=== PATIENT | male | born 1945 | race Caucasian/White ===

== ENCOUNTER 2017-03-15 22:55 | Observation (INO) | payer OTHER ==
[~2017-03-15] VITALS: Ht 177.8 cm; Wt 106.5 kg
[~2017-03-15 22:55] MED LIST: ACTOS45 MG PO; AMLODIPINE-BEN1 EAC2 PO; ASPIR-LOW81 MG PO; ASPIRIN325 MG PO; ATENOLOL50 M1 PO; ATORVASTATIN CA40 MG PO; AUGMENTIN875 MG PO; BAYER CHEWABLE81 MG PO; CLOPIDOGREL75 MG PO; ECOTRIN325 MG PO; GLIPIZIDE10 MG PO; GLUCOPHAGE500 MG PO; GLUCOTROL XL10 MG PO; LEVEMIR FL100 UNIT/1 SC; LOTREL 5/101 CAPSULE PO; LOTREL 5/201 CAPSULE PO; METFORMIN HCL500 MG PO; METOPROLOL TART25 MG PO; MYCELEX10 MG MM; NIASPAN,SLO-NI500 MG PO; NITROLINGUAL S4.9 GM MM; NITROLINGUAL4.9 GM MM; NOVOLOG PE100 UNITS/ SC; NYSTATIN100000 UNI S; OMEGA 3-6-9 CO1 EACH PO; PREVACID15 MG PO; PRILOSEC40 MG PO; SIMVASTATIN80 MG PO; SLO-NIACIN500 MG PO; TENORMIN50 MG PO; ZANTAC150 MG PO; ZOCOR80 MG PO
[2017-03-15 23:30] LABS: HEMATOCRIT 32.7 % (38.0-50.0); MCHC 34.3 G/DL (30.0-36.0); MCV 87.7 FL (86-99); MEAN PLAT.VOLUME 12.4 uM^3 (9.0-12.4); PLATELET COUNT 152 K/uL (156-360); RBC DIS.WIDTH-CV 12.6 % (11.8-14.6); RBC DIS.WIDTH-SD 40.7 % (39-53); RED BLOOD COUNT 3.73 M/uL (4.00-5.50); WHITE BLOOD COUNT 8.9 K/uL (4.1-10.2)
[2017-03-15 23:44] LABS: CHLORIDE 111 mEq/L (99-109); POTASSIUM 3.9 mEq/L (3.7-5.4); SODIUM 142 mEq/L (136-147)
[2017-03-15 23:46] LABS: GLUCOSE 226 mg/dL (70-99)
[2017-03-15 23:47] LABS: ANION GAP 8 MEQ/L (2-14)
[2017-03-15 23:48] LABS: INTER. NORMALIZED RATIO 1.1; PROTHROMBIN TIME 10.7 (9.2-11.2); PTT 28.3 (25-32)
[2017-03-15 23:50] LABS: GFR ESTIMATE (CALCULATED) 42 mL/min/
[2017-03-15 23:51] LABS: UREA NITROGEN (BUN) 23 mg/dL (9-23)
[2017-03-15 23:58] LABS: TOTAL BILIRUBIN 0.4 mg/dL (0.0-1.0); TROP-I INTERPRETATION NEGATIVE; TROPONIN-I 0.03 ng/mL (0.0-0.30)
[2017-03-15 23:59] LABS: ALKALINE PHOSPHATASE 81 IU/L (3-129)
[2017-03-16 00:01] LABS: DIRECT BILIRUBIN 0.1 mg/dL (0.0-0.3)
[2017-03-16 00:03] LABS: LIPASE 9 U/L (1.0-51.0)
[2017-03-16 04:44] VITALS: BP 180/76
[2017-03-16 06:04] LABS: TROP-I INTERPRETATION NEGATIVE; TROPONIN-I 0.07 ng/mL (0.0-0.30)
[2017-03-16 07:11] VITALS: BP 174/80
[2017-03-16 08:07] LABS: HEMATOCRIT 30.3 % (38.0-50.0); MCHC 34.7 G/DL (30.0-36.0); MCV 89.4 FL (86-99); MEAN PLAT.VOLUME 12.9 uM^3 (9.0-12.4); PLATELET COUNT 134 K/uL (156-360); RED BLOOD COUNT 3.39 M/uL (4.00-5.50); WHITE BLOOD COUNT 7.3 K/uL (4.1-10.2)
[2017-03-16 08:09] LABS: POINT-OF-CARE METER ID UU14162513
[2017-03-16 08:22] LABS: ANION GAP 10 MEQ/L (2-14); CHLORIDE 111 MEQ/L (99-109); GFR ESTIMATE (CALCULATED) 49 mL/min/; GLUCOSE 114 mg/dL (70-99); POTASSIUM 3.9 MEQ/L (3.7-5.4); SAMPLE HEMOLYSIS CHECK 0; SAMPLE ICTERIC CHECK 0; SAMPLE LIPEMIA CHECK 0; SODIUM 142 MEQ/L (136-147); UREA NITROGEN (BUN) 23 mg/dL (9-23)
[2017-03-16] MEDS ORDERED: METFORMIN HCL500 MG PO (11:03)
[2017-03-16] MEDS ORDERED: AMLODIPINE-BEN1 EACH PO (11:03)
[2017-03-16] MEDS ORDERED: LOPRESSOR25 MG PO (11:03)
[2017-03-16] MEDS ORDERED: RANITIDINE HCL150 M1 PO (11:04)
[2017-03-16] MEDS ORDERED: OMEGA 3-6-9 11200 MG PO (11:04)
[2017-03-16] MEDS ORDERED: PLAVIX75 MG PO (11:05)
[2017-03-16] MEDS ORDERED: ASPIR-LOW81 MG PO (11:05)
[2017-03-16 11:22] LABS: D-DIMER ELISA 0.92 mg/L FEU (< 0.57)
[2017-03-16 11:35] LABS: TROP-I INTERPRETATION NEGATIVE; TROPONIN-I 0.06 ng/mL (0.0-0.30)
[2017-03-16 12:03] VITALS: BP 168/78
[2017-03-16 12:22] VITALS: BP 203/86
[2017-03-16 14:30] LABS: POINT-OF-CARE METER ID UU14162513
[2017-03-16 15:27] VITALS: BP 176/78
== END 2017-03-16 16:47 | disposition home or self-care (01) ==
LOC: EME 22:55 → EDOF 03-16 02:43 → 5WEST 03-16 04:29
PROVIDERS: Nurse Practitioner Family; Physician Assistant Medical; Student in an Organized Health Care Education/Training Program
DX: R07.9 Chest pain, unspecified (principal); I25.10 Atherosclerotic heart disease of native coronary artery without angina pectoris; Z95.1 Presence of aortocoronary bypass graft; Z95.5 Presence of coronary angioplasty implant and graft; I10 Essential (primary) hypertension; E11.42 Type 2 diabetes mellitus with diabetic polyneuropathy; E78.5 Hyperlipidemia, unspecified; K21.9 Gastro-esophageal reflux disease without esophagitis; R60.0 Localized edema; J90 Pleural effusion, not elsewhere classified; R94.31 Abnormal electrocardiogram [ECG] [EKG]; E66.9 Obesity, unspecified; Z68.33 Body mass index [BMI] 33.0-33.9, adult; Z79.4 Long term (current) use of insulin; I65.23 Occlusion and stenosis of bilateral carotid arteries; Z79.82 Long term (current) use of aspirin; I25.2 Old myocardial infarction; Z86.73 Personal history of transient ischemic attack (TIA), and cerebral infarction without residual deficits; R05 Cough; Z87.891 Personal history of nicotine dependence; N28.9 Disorder of kidney and ureter, unspecified
CPT/HCPCS: 71020; 71275; 80048; 80076; 82948; 83690; 84484; 85027; 85379; 85610; 85730; 93005; 93970; 99281; 99285; G0378; J7040

== ENCOUNTER 2017-08-06 12:23 | Observation (INO) | payer OTHER ==
[~2017-08-06] VITALS: Ht 180.3 cm; Wt 100.6 kg
[~2017-08-06 12:23] MED LIST changes: +AMLODIPINE-BEN1 EACH PO; +LOPRESSOR25 MG PO; +OMEGA 3-6-9 11200 MG PO; +PLAVIX75 MG PO; +RANITIDINE HCL150 M1 PO
[2017-08-06 13:42] LABS: EOSINOPHIL (%) 2.4 % (0-5); EOSINOPHIL COUNT 0.2 K/uL (0-0.3); HEMATOCRIT 33.3 % (38.0-50.0); IMMATURE GRANULOCYTE (%) 0.2 % (0.0-0.7); INSTRUMENT ABS NEUTROPHIL CT 6.7 K/uL; LYMPHOCYTE COUNT 1.2 K/uL (1.0-2.8); MCH 30.3 PG (29.0-34.0); MCHC 34.8 G/DL (30.0-36.0); MCV 86.9 FL (86-99); MEAN PLAT.VOLUME 12.3 uM^3 (9.0-12.4); MONOCYTE (%) 6.7 % (3-12); MONOCYTE COUNT 0.6 K/uL (0-0.8); NEUTROPHIL (%) 76.2 % (45-76); NEUTROPHIL COUNT 6.7 K/uL (1.8-6.4); PLATELET COUNT 134 K/uL (156-360); RBC DIS.WIDTH-CV 12.3 % (11.8-14.6); RBC DIS.WIDTH-SD 39.3 % (39-53); RED BLOOD COUNT 3.83 M/uL (4.00-5.50); WHITE BLOOD COUNT 8.8 K/uL (4.1-10.2)
[2017-08-06 13:50] LABS: CHLORIDE 108 mEq/L (99-109); POTASSIUM 3.5 mEq/L (3.7-5.4); SODIUM 140 mEq/L (136-147)
[2017-08-06 13:52] LABS: GLUCOSE 211 mg/dL (70-99)
[2017-08-06 13:53] LABS: ANION GAP 9 MEQ/L (2-14)
[2017-08-06 13:56] LABS: GFR ESTIMATE (CALCULATED) 28 mL/min/
[2017-08-06 13:57] LABS: UREA NITROGEN (BUN) 30 mg/dL (9-23)
[2017-08-06 14:02] LABS: TROP-I INTERPRETATION NEGATIVE; TROPONIN-I 0.04 ng/mL (0.0-0.30)
[2017-08-06 15:41] LABS: TROP-I INTERPRETATION NEGATIVE; TROPONIN-I 0.04 ng/mL (0.0-0.30)
[2017-08-06] MEDS ORDERED: HYDROCHLOROTHIA25 MG PO (17:57)
[2017-08-06] MEDS ORDERED: NOVOLIN N100 UNITS/ SC (17:58)
[2017-08-06] MEDS ORDERED: LIPITOR40 MG PO (17:58)
[2017-08-06 20:58] LABS: TROP-I INTERPRETATION NEGATIVE; TROPONIN-I 0.04 ng/mL (0.0-0.30)
[2017-08-06 21:03] VITALS: BP 207/91
[2017-08-06 21:57] LABS: POINT-OF-CARE METER ID UU13113831
[2017-08-07 03:19] LABS: EOSINOPHIL (%) 1.8 % (0-5); EOSINOPHIL COUNT 0.2 K/uL (0-0.3); HEMATOCRIT 31.5 % (38.0-50.0); IMMATURE GRANULOCYTE (%) 0.3 % (0.0-0.7); INSTRUMENT ABS NEUTROPHIL CT 6.2 K/uL; LYMPHOCYTE COUNT 1.7 K/uL (1.0-2.8); MCH 30.2 PG (29.0-34.0); MCHC 35.2 G/DL (30.0-36.0); MCV 85.6 FL (86-99); MEAN PLAT.VOLUME 12.3 uM^3 (9.0-12.4); MONOCYTE (%) 7.9 % (3-12); MONOCYTE COUNT 0.7 K/uL (0-0.8); NEUTROPHIL (%) 70.4 % (45-76); NEUTROPHIL COUNT 6.2 K/uL (1.8-6.4); PLATELET COUNT 148 K/uL (156-360); RBC DIS.WIDTH-CV 12.4 % (11.8-14.6); RBC DIS.WIDTH-SD 38.5 % (39-53); RED BLOOD COUNT 3.68 M/uL (4.00-5.50); WHITE BLOOD COUNT 8.8 K/uL (4.1-10.2)
[2017-08-07 03:34] LABS: CHLORIDE 108 mEq/L (99-109); POTASSIUM 3.8 mEq/L (3.7-5.4); SODIUM 137 mEq/L (136-147)
[2017-08-07 03:37] LABS: GLUCOSE 312 mg/dL (70-99)
[2017-08-07 03:38] LABS: ANION GAP 7 MEQ/L (2-14)
[2017-08-07 03:39] LABS: TOTAL BILIRUBIN 0.5 mg/dL (0.0-1.0)
[2017-08-07 03:40] LABS: ALKALINE PHOSPHATASE 72 IU/L (3-129)
[2017-08-07 03:41] LABS: GFR ESTIMATE (CALCULATED) 31 mL/min/
[2017-08-07 03:42] LABS: DIRECT BILIRUBIN 0.1 mg/dL (0.0-0.3); UREA NITROGEN (BUN) 31 mg/dL (9-23)
[2017-08-07 03:45] LABS: TROP-I INTERPRETATION NEGATIVE; TROPONIN-I 0.04 ng/mL (0.0-0.30)
[2017-08-07 03:56] VITALS: BP 199/84
[2017-08-07 04:32] LABS: POINT-OF-CARE METER ID UU14162513
[2017-08-07 06:54] LABS: Estimated Average Glucose 194 mg/dL (70-123); HEMOGLOBIN A1c (GLYCOHEMOGLOB) 8.4 % HGB (Below 5.7)
[2017-08-07 07:50] VITALS: BP 182/77
[2017-08-07 08:27] LABS: POINT-OF-CARE METER ID UU13113700
== END 2017-08-07 09:54 | disposition home or self-care (01) ==
LOC: EME 12:23 → EDOF 19:13 → ENRESERV 19:14 → 5WEST 20:50
PROVIDERS: Emergency Medicine; Internal Medicine
DX: R55 Syncope and collapse (principal); N17.9 Acute kidney failure, unspecified; I12.9 Hypertensive chronic kidney disease with stage 1 through stage 4 chronic kidney disease, or unspecified chronic kidney disease; E11.22 Type 2 diabetes mellitus with diabetic chronic kidney disease; N18.9 Chronic kidney disease, unspecified; E11.65 Type 2 diabetes mellitus with hyperglycemia; E11.40 Type 2 diabetes mellitus with diabetic neuropathy, unspecified; I25.10 Atherosclerotic heart disease of native coronary artery without angina pectoris; Z79.4 Long term (current) use of insulin; E78.5 Hyperlipidemia, unspecified; K21.9 Gastro-esophageal reflux disease without esophagitis; Z86.73 Personal history of transient ischemic attack (TIA), and cerebral infarction without residual deficits; Z95.1 Presence of aortocoronary bypass graft; Z79.02 Long term (current) use of antithrombotics/antiplatelets; Z79.82 Long term (current) use of aspirin; R60.0 Localized edema
CPT/HCPCS: 71010; 80048; 80076; 82948; 83036; 84484; 85025; 85379; 93005; 99281; 99285; G0378; J0461; J1644; J1815; J7030

== ENCOUNTER 2017-10-27 10:52 | Inpatient (IN) | payer OTHER ==
[~2017-10-27] VITALS: Ht 180.3 cm; Wt 97.4 kg
[2017-10-27] VITALS (8 sets, daily range): BP systolic 160–185; BP diastolic 63–74
[~2017-10-27 10:52] MED LIST changes: +HYDROCHLOROTHIA25 MG PO; +LIPITOR40 MG PO; +NOVOLIN N100 UNITS/ SC
[2017-10-27 11:17] LABS: BASOPHIL (%) 0.3 % (0-1); EOSINOPHIL (%) 1.7 % (0-5); EOSINOPHIL COUNT 0.2 K/uL (0-0.3); HEMOGLOBIN 12.3 G/DL (12.5-16.6); IMMATURE GRANULOCYTE (%) 0.3 % (0.0-0.7); LYMPHOCYTE (%) 24.9 % (15-42); LYMPHOCYTE COUNT 2.2 K/uL (1.0-2.8); MCH 30.8 PG (29.0-34.0); MCHC 34.2 G/DL (30.0-36.0); MCV 90.2 FL (86-99); MONOCYTE (%) 7.7 % (3-12); MONOCYTE COUNT 0.7 K/uL (0-0.8); NEUTROPHIL (%) 65.1 % (45-76); NEUTROPHIL COUNT 5.7 K/uL (1.8-6.4); PLATELET COUNT 178 K/uL (156-360); RBC DIS.WIDTH-CV 12.7 % (11.8-14.6); RBC DIS.WIDTH-SD 41.8 % (39-53); RED BLOOD COUNT 3.99 M/uL (4.00-5.50); WHITE BLOOD COUNT 8.8 K/uL (4.1-10.2)
[2017-10-27 11:22] LABS: ALBUMIN 3.2 g/dL (3.2-4.8); CHLORIDE 108 mEq/L (99-109); POTASSIUM 3.8 mEq/L (3.7-5.4); SODIUM 141 mEq/L (136-147)
[2017-10-27 11:23] LABS: MAGNESIUM 1.9 mg/dL (1.3-2.7)
[2017-10-27 11:25] LABS: GLUCOSE 244 mg/dL (70-99); TOTAL PROTEIN 6.3 g/dL (6.4-8.3)
[2017-10-27 11:27] LABS: TOTAL BILIRUBIN 0.7 mg/dL (0.0-1.0)
[2017-10-27 11:28] LABS: ALKALINE PHOSPHATASE 94 IU/L (3-129)
[2017-10-27 11:29] LABS: CREATININE 2.7 mg/dL (0.6-1.3); GFR ESTIMATE (CALCULATED) 25 mL/min/ (58.99-99999)
[2017-10-27 11:30] LABS: AST (GOT) 15 IU/L (2-34); UREA NITROGEN (BUN) 27 mg/dL (9-23)
[2017-10-27 11:31] LABS: ALT (GPT) 23 IU/L (3-49)
[2017-10-27 11:32] LABS: CREATINE KINASE 55 IU/L (1-294); TOTAL CK 55 IU/L (1-294)
[2017-10-27 11:38] LABS: CK-MB 1.9 ng/mL (0.0-4.9); CKMB RELATIVE INDEX 3.5 (0.0-3.9); TROP-I INTERPRETATION NEGATIVE; TROPONIN-I 0.07 ng/mL (0.0-0.30)
[2017-10-27] MEDS ORDERED: NOVOLIN N100 UNITS/ SC (13:26)
[2017-10-28] VITALS (18 sets, daily range): BP systolic 101–181; BP diastolic 57–86
[2017-10-28 06:06] LABS: CHLORIDE 106 MEQ/L (99-109); CREATININE 2.6 MG/DL (0.6-1.3); GFR ESTIMATE (CALCULATED) 26 mL/min/ (58.99-99999); POTASSIUM 3.3 MEQ/L (3.7-5.4); SODIUM 139 MEQ/L (136-147); UREA NITROGEN (BUN) 35 mg/dL (9-23)
[2017-10-28 06:08] LABS: GLUCOSE 67 mg/dL (70-99)
[2017-10-28 19:14] LABS: TROP-I INTERPRETATION POSITIVE; TROPONIN-I 1.11 ng/mL (0.0-0.30)
[2017-10-29 03:00] VITALS: BP 166/84
[2017-10-29 06:05] LABS: HEMATOCRIT 33.5 % (38.0-50.0); HEMOGLOBIN 11.5 G/DL (12.5-16.6); MCH 30.5 PG (29.0-34.0); MCHC 34.3 G/DL (30.0-36.0); MCV 88.9 FL (86-99); PLATELET COUNT 154 K/uL (156-360); RBC DIS.WIDTH-SD 42.3 % (39-53); RED BLOOD COUNT 3.77 M/uL (4.00-5.50); WHITE BLOOD COUNT 7.7 K/uL (4.1-10.2)
[2017-10-29 06:06] LABS: TROP-I INTERPRETATION POSITIVE; TROPONIN-I 1.01 ng/mL (0.0-0.30)
[2017-10-29 06:09] LABS: CHLORIDE 110 MEQ/L (99-109); CREATININE 2.6 MG/DL (0.6-1.3); GFR ESTIMATE (CALCULATED) 26 mL/min/ (58.99-99999); SODIUM 141 MEQ/L (136-147); UREA NITROGEN (BUN) 34 mg/dL (9-23)
[2017-10-29 06:10] LABS: GLUCOSE 144 mg/dL (70-99); POTASSIUM 4.2 MEQ/L (3.7-5.4)
[2017-10-29 08:02] VITALS: BP 174/77
[2017-10-29 12:00] VITALS: BP 150/85
[2017-10-29 16:00] VITALS: BP 194/90
[2017-10-29 20:07] VITALS: BP 169/77
[2017-10-30] VITALS: BP 185/85
[2017-10-30 05:16] VITALS: BP 178/84
[2017-10-30 07:20] LABS: CHLORIDE 107 MEQ/L (99-109); CREATININE 2.3 MG/DL (0.6-1.3); GFR ESTIMATE (CALCULATED) 30 mL/min/ (58.99-99999); POTASSIUM 4.2 MEQ/L (3.7-5.4); SODIUM 139 MEQ/L (136-147); UREA NITROGEN (BUN) 29 mg/dL (9-23)
[2017-10-30 07:23] LABS: GLUCOSE 227 mg/dL (70-99)
[2017-10-30 07:49] VITALS: BP 168/74
[2017-10-30] MEDS ORDERED: LOPRESSOR25 MG PO (11:15)
[2017-10-30] MEDS ORDERED: AMLODIPINE BESYL5 MG PO (11:17)
[2017-10-30] MEDS ORDERED: NOVOLIN N100 UNITS/ SC ×2 (11:17)
[2017-10-30] MEDS ORDERED: LASIX20 MG PO (11:18)
== END 2017-10-30 12:00 | disposition home or self-care (01) | DRG 307 ==
LOC: EME 10:52 → EDOF 12:34 → 4WEST 12:34 → ENRESERV 12:36 → 4WEST 17:31 → ENRESERV 10-28 10:17 → 5SOUTH 10-28 16:58
PROVIDERS: Emergency Medicine; Hospitalist; Internal Medicine Cardiovascular Disease; Internal Medicine Critical Care Medicine
DX: I08.0 Rheumatic disorders of both mitral and aortic valves (principal); R00.1 Bradycardia, unspecified; N17.9 Acute kidney failure, unspecified; E87.2 Acidosis; I24.8 Other forms of acute ischemic heart disease; T44.7X5A Adverse effect of beta-adrenoreceptor antagonists, initial encounter; I12.9 Hypertensive chronic kidney disease with stage 1 through stage 4 chronic kidney disease, or unspecified chronic kidney disease; E11.22 Type 2 diabetes mellitus with diabetic chronic kidney disease; N18.4 Chronic kidney disease, stage 4 (severe); E11.51 Type 2 diabetes mellitus with diabetic peripheral angiopathy without gangrene; E11.42 Type 2 diabetes mellitus with diabetic polyneuropathy; I65.23 Occlusion and stenosis of bilateral carotid arteries; S80.811A Abrasion, right lower leg, initial encounter; W22.8XXA Striking against or struck by other objects, initial encounter; Y92.008 Other place in unspecified non-institutional (private) residence as the place of occurrence of the external cause; I44.0 Atrioventricular block, first degree; I25.10 Atherosclerotic heart disease of native coronary artery without angina pectoris; E87.6 Hypokalemia; E78.00 Pure hypercholesterolemia, unspecified; K21.9 Gastro-esophageal reflux disease without esophagitis; I25.2 Old myocardial infarction; Z86.73 Personal history of transient ischemic attack (TIA), and cerebral infarction without residual deficits; Z95.1 Presence of aortocoronary bypass graft; Z95.5 Presence of coronary angioplasty implant and graft; Z79.4 Long term (current) use of insulin; Z79.02 Long term (current) use of antithrombotics/antiplatelets; Z79.82 Long term (current) use of aspirin; Z87.891 Personal history of nicotine dependence; Z82.49 Family history of ischemic heart disease and other diseases of the circulatory system
CPT/HCPCS: 70450; 71045; 80047; 80048; 80053; 82550; 82553; 82948; 83605; 83735; 84484; 85025; 85027; 87641; 93005; 93306; 93880; 99281; 99285; J0360; J0461; J1644; J1815; J2250; J7030; J7120

== ENCOUNTER 2017-11-30 00:43 | Inpatient (IN) | payer OTHER ==
[~2017-11-30] VITALS: Ht 180.3 cm; Wt 101.7 kg
[~2017-11-30 00:43] MED LIST changes: +AMLODIPINE BESYL5 MG PO; +LASIX20 MG PO
[2017-11-30 01:19] LABS: HEMATOCRIT 31.3 % (38.0-50.0); MCH 31.2 PG (29.0-34.0); MCHC 35.1 G/DL (30.0-36.0); MCV 88.7 FL (86-99); RBC DIS.WIDTH-CV 12.4 % (11.8-14.6); RBC DIS.WIDTH-SD 40.5 % (39-53); RED BLOOD COUNT 3.53 M/uL (4.00-5.50); WHITE BLOOD COUNT 6.4 K/uL (4.1-10.2)
[2017-11-30 01:28] LABS: CHLORIDE 108 mEq/L (99-109); POTASSIUM 3.9 mEq/L (3.7-5.4); SODIUM 139 mEq/L (136-147)
[2017-11-30 01:29] LABS: GLUCOSE 180 mg/dL (70-99)
[2017-11-30 01:33] LABS: CREATININE 2.6 mg/dL (0.6-1.3); GFR ESTIMATE (CALCULATED) 26 mL/min/ (58.99-99999)
[2017-11-30 01:34] LABS: UREA NITROGEN (BUN) 25 mg/dL (9-23)
[2017-11-30 01:40] LABS: TROP-I INTERPRETATION NEGATIVE
[2017-11-30 02:01] LABS: PLAT.SUFFICIENCY DECREASED; PLATELET COUNT 143 K/uL (156-360)
[2017-11-30 02:13] LABS: CARBON DIOXIDE (BICARBONATE) 22.1 MEQ/L (20-31)
[2017-11-30 03:15] LABS: ALBUMIN 3.5 g/dL (3.2-4.8)
[2017-11-30 03:18] LABS: TOTAL PROTEIN 6.8 g/dL (6.4-8.3)
[2017-11-30 03:20] LABS: TOTAL BILIRUBIN 0.5 mg/dL (0.0-1.0)
[2017-11-30 03:21] LABS: ALKALINE PHOSPHATASE 103 IU/L (3-129)
[2017-11-30 03:23] LABS: AST (GOT) 16 IU/L (2-34); DIRECT BILIRUBIN 0.2 mg/dL (0.0-0.3)
[2017-11-30 03:24] LABS: ALT (GPT) 19 IU/L (3-49)
[2017-11-30 03:33] LABS: APPEARANCE CLEAR ((CLEAR)); BILIRUBIN NEGATIVE; BLOOD SMALL; COLOR YELLOW ((YELLOW)); GLUCOSE (STRIP) >=500; KETONES NEGATIVE; LEUKOCYTES NEGATIVE; NITRITE NEGATIVE; PROTEIN (STRIP) >=500; SPECIFIC GRAVITY 1.012 (1.000-1.030); UROBILINOGEN 0.2 MG/DL (0.2-1.0)
[2017-11-30 03:41] LABS: BACTERIA RARE /HPF; EPITHELIAL CELLS NONE SEEN /HPF; MUCUS TRACE /LPF; UCUL ADDED? NO; WHITE BLOOD CELLS 0-5 /HPF (0-5)
[2017-11-30 04:40] LABS: INTER. NORMALIZED RATIO 1.1
[2017-11-30 04:43] LABS: PTT 32.2 SEC (25-37)
[2017-11-30 04:47] VITALS: BP 171/77
[2017-11-30 06:50] LABS: TROP-I INTERPRETATION NEGATIVE; TROPONIN-I 0.24 ng/mL (0.0-0.30)
[2017-11-30 06:56] VITALS: BP 141/67
[2017-11-30 07:21] LABS: HDL CHOLESTEROL 26 MG/DL (Desirable>=40); LDL CHOLESTEROL 89 mg/dL (Desirable<100); NON-HDL CHOLESTEROL 109 mg/dL (Desirable<160); TOTAL CHOLESTEROL 135 mg/dL (Desirable<200); TRIGLYCERIDES 102 MG/DL (Normal: <150)
[2017-11-30] MEDS ORDERED: LASIX20 MG PO (10:43)
[2017-11-30 11:02] VITALS: BP 153/68
[2017-11-30 12:33] LABS: TROP-I INTERPRETATION INDETERMINATE; TROPONIN-I 0.33 ng/mL (0.0-0.30)
[2017-11-30 14:57] VITALS: BP 158/69
[2017-11-30 19:28] VITALS: BP 124/61
[2017-12-01] VITALS (7 sets, daily range): BP systolic 125–185; BP diastolic 61–87
[2017-12-01 06:46] LABS: HEMATOCRIT 30.7 % (38.0-50.0); HEMOGLOBIN 10.5 G/DL (12.5-16.6); MCH 30.3 PG (29.0-34.0); MCHC 34.2 G/DL (30.0-36.0); MCV 88.7 FL (86-99); PLATELET COUNT 127 K/uL (156-360); RBC DIS.WIDTH-CV 12.6 % (11.8-14.6); RBC DIS.WIDTH-SD 41.1 % (39-53); RED BLOOD COUNT 3.46 M/uL (4.00-5.50); WHITE BLOOD COUNT 6.1 K/uL (4.1-10.2)
[2017-12-01 07:06] LABS: TROP-I INTERPRETATION NEGATIVE; TROPONIN-I 0.25 ng/mL (0.0-0.30)
[2017-12-01 10:15] LABS: CHLORIDE 105 MEQ/L (99-109); CREATININE 2.5 MG/DL (0.6-1.3); GFR ESTIMATE (CALCULATED) 27 mL/min/ (58.99-99999); SODIUM 135 MEQ/L (136-147); UREA NITROGEN (BUN) 26 mg/dL (9-23)
[2017-12-01 10:23] LABS: GLUCOSE 108 mg/dL (70-99)
[2017-12-01 10:31] LABS: INTER. NORMALIZED RATIO 1.2
[2017-12-01 12:30] LABS: UR CREATININE CONCENTRATION 104.3 MG/DL
[2017-12-02 03:13] VITALS: BP 170/73
[2017-12-02 06:22] LABS: BASOPHIL (%) 0.2 % (0-1); EOSINOPHIL (%) 0.2 % (0-5); HEMATOCRIT 29.7 % (38.0-50.0); HEMOGLOBIN 10.2 G/DL (12.5-16.6); IMMATURE GRANULOCYTE (%) 0.2 % (0.0-0.7); LYMPHOCYTE (%) 14.8 % (15-42); LYMPHOCYTE COUNT 0.6 K/uL (1.0-2.8); MCH 30.2 PG (29.0-34.0); MCHC 34.3 G/DL (30.0-36.0); MCV 87.9 FL (86-99); MONOCYTE (%) 13.4 % (3-12); MONOCYTE COUNT 0.6 K/uL (0-0.8); NEUTROPHIL (%) 71.2 % (45-76); NEUTROPHIL COUNT 3.1 K/uL (1.8-6.4); PLATELET COUNT 117 K/uL (156-360); RBC DIS.WIDTH-CV 12.5 % (11.8-14.6); RBC DIS.WIDTH-SD 40.3 % (39-53); RED BLOOD COUNT 3.38 M/uL (4.00-5.50); WHITE BLOOD COUNT 4.3 K/uL (4.1-10.2)
[2017-12-02 06:35] LABS: INTER. NORMALIZED RATIO 1.2
[2017-12-02 06:43] LABS: C4 COMPLEMENT 50 MG/DL (10-40); CHLORIDE 102 MEQ/L (99-109); CREATININE 2.6 MG/DL (0.6-1.3); GFR ESTIMATE (CALCULATED) 26 mL/min/ (58.99-99999); POTASSIUM 3.5 MEQ/L (3.7-5.4); SODIUM 136 MEQ/L (136-147); UREA NITROGEN (BUN) 28 mg/dL (9-23)
[2017-12-02 06:44] LABS: GLUCOSE 57 mg/dL (70-99)
[2017-12-02 07:52] VITALS: BP 150/62
[2017-12-02] MEDS ORDERED: APRESOLINE50 MG PO (11:11)
[2017-12-02] MEDS ORDERED: LOPRESSOR25 MG PO (11:11)
[2017-12-02] MEDS ORDERED: FUROSEMIDE40 MG PO (11:11)
[2017-12-02] MEDS ORDERED: WARFARIN SODIUM5 MG PO (11:11)
[2017-12-02] MEDS ORDERED: LOVENOX100 MG/1 M SC (11:11)
[2017-12-02 11:48] VITALS: BP 142/60
[2017-12-04 12:35] LABS: Neutrophil Cytoplasmic Aby Negative (Negative)
== END 2017-12-02 12:43 | disposition home or self-care (01) | DRG 641 ==
LOC: EME 00:43 → 5SOUTH 03:19 → EDOF 03:19 → ENRESERV 03:24 → 5SOUTH 04:47
PROVIDERS: Emergency Medicine; Hospitalist; Internal Medicine; Internal Medicine Cardiovascular Disease; Internal Medicine Nephrology; Physician Assistant Medical
DX: E87.70 Fluid overload, unspecified (principal); N17.9 Acute kidney failure, unspecified; N18.4 Chronic kidney disease, stage 4 (severe); I12.9 Hypertensive chronic kidney disease with stage 1 through stage 4 chronic kidney disease, or unspecified chronic kidney disease; E11.22 Type 2 diabetes mellitus with diabetic chronic kidney disease; E11.21 Type 2 diabetes mellitus with diabetic nephropathy; I25.2 Old myocardial infarction; E04.1 Nontoxic single thyroid nodule; E78.5 Hyperlipidemia, unspecified; E11.40 Type 2 diabetes mellitus with diabetic neuropathy, unspecified; I25.10 Atherosclerotic heart disease of native coronary artery without angina pectoris; K21.9 Gastro-esophageal reflux disease without esophagitis; Z95.1 Presence of aortocoronary bypass graft; Z87.891 Personal history of nicotine dependence; Z86.73 Personal history of transient ischemic attack (TIA), and cerebral infarction without residual deficits; I87.2 Venous insufficiency (chronic) (peripheral); I08.0 Rheumatic disorders of both mitral and aortic valves; I82.491 Acute embolism and thrombosis of other specified deep vein of right lower extremity
CPT/HCPCS: 71046; 71250; 74176; 76770; 78582; 80048; 80061; 80076; 81003; 82570; 82803; 82948; 83605; 83880; 84156; 84484; 85025; 85027; 85379; 85610; 85730; 86021 90; 86038; 86160; 86235; 87040; 87086; 93005; 93971; 94640; 99281; 99285; A9539; A9540; J0696; J1650; J1815; J1940

== ENCOUNTER 2017-12-05 06:38 | Emergency (ER) | payer OTHER ==
[~2017-12-05] VITALS: Ht 180.3 cm; Wt 100.4 kg
[~2017-12-05 06:38] MED LIST changes: +APRESOLINE50 MG PO; +FUROSEMIDE40 MG PO; +LOVENOX100 MG/1 M SC; +WARFARIN SODIUM5 MG PO
[2017-12-05 07:58] LABS: HEMATOCRIT 29.9 % (38.0-50.0); HEMOGLOBIN 10.3 G/DL (12.5-16.6); MCHC 34.4 G/DL (30.0-36.0); MCV 87.2 FL (86-99); PLATELET COUNT 110 K/uL (156-360); RBC DIS.WIDTH-CV 12.4 % (11.8-14.6); RBC DIS.WIDTH-SD 39.8 % (39-53); RED BLOOD COUNT 3.43 M/uL (4.00-5.50); WHITE BLOOD COUNT 4.2 K/uL (4.1-10.2)
[2017-12-05 08:38] LABS: ALBUMIN 3.2 G/DL (3.2-4.8); ALKALINE PHOSPHATASE 70 IU/L (3-129); ALT (GPT) 28 IU/L (3-49); AST (GOT) 35 IU/L (2-34); CHLORIDE 107 MEQ/L (99-109); CREATININE 2.6 MG/DL (0.6-1.3); GFR ESTIMATE (CALCULATED) 26 mL/min/ (58.99-99999); GLUCOSE 91 mg/dL (70-99); LIPASE 23 U/L (1.0-51.0); POTASSIUM 3.3 MEQ/L (3.7-5.4); SODIUM 138 MEQ/L (136-147); TOTAL BILIRUBIN 0.3 MG/DL (0.0-1.0); UREA NITROGEN (BUN) 32 mg/dL (9-23)
[2017-12-05 11:56] VITALS: BP 162/70
== END 2017-12-05 12:01 | disposition home or self-care (01) ==
LOC: EME 06:38
PROVIDERS: Emergency Medicine
DX: S30.1XXA Contusion of abdominal wall, initial encounter (principal); Z87.891 Personal history of nicotine dependence; I25.2 Old myocardial infarction; I50.9 Heart failure, unspecified; I11.0 Hypertensive heart disease with heart failure; E78.5 Hyperlipidemia, unspecified; E11.9 Type 2 diabetes mellitus without complications; Z86.73 Personal history of transient ischemic attack (TIA), and cerebral infarction without residual deficits; Z95.1 Presence of aortocoronary bypass graft; Z79.02 Long term (current) use of antithrombotics/antiplatelets; Z79.82 Long term (current) use of aspirin
CPT/HCPCS: 71045; 74176; 80053; 83690; 85027; 99281; 99285

== ENCOUNTER 2017-12-15 19:07 | Emergency (ER) | payer OTHER ==
[~2017-12-15] VITALS: Ht 177.8 cm; Wt 97.6 kg
[2017-12-15 20:03] LABS: HEMATOCRIT 28.1 % (38.0-50.0); HEMOGLOBIN 9.6 G/DL (12.5-16.6); MCH 30.2 PG (29.0-34.0); MCHC 34.2 G/DL (30.0-36.0); MCV 88.4 FL (86-99); RBC DIS.WIDTH-CV 12.5 % (11.8-14.6); RBC DIS.WIDTH-SD 40.7 % (39-53); RED BLOOD COUNT 3.18 M/uL (4.00-5.50); WHITE BLOOD COUNT 9.6 K/uL (4.1-10.2)
[2017-12-15 20:06] LABS: PLATELET COUNT 284 K/uL (156-360)
[2017-12-15 20:13] LABS: PTT 68.3 SEC (25-37)
[2017-12-15 20:14] LABS: CHLORIDE 106 mEq/L (99-109); POTASSIUM 4.5 mEq/L (3.7-5.4); SODIUM 137 mEq/L (136-147)
[2017-12-15 20:16] LABS: GLUCOSE 135 mg/dL (70-99)
[2017-12-15 20:18] LABS: INTER. NORMALIZED RATIO 8.4
[2017-12-15 20:20] LABS: CREATININE 2.5 mg/dL (0.6-1.3); GFR ESTIMATE (CALCULATED) 27 mL/min/ (58.99-99999)
[2017-12-15 20:21] LABS: UREA NITROGEN (BUN) 30 mg/dL (9-23)
[2017-12-15] MEDS ORDERED: VITAMIN K100 MCG PO (20:36)
[2017-12-15 21:22] VITALS: BP 125/66
== END 2017-12-15 21:23 | disposition home or self-care (01) ==
LOC: EME 19:07
PROVIDERS: Physician Assistant
DX: R79.1 Abnormal coagulation profile (principal); E11.9 Type 2 diabetes mellitus without complications; I10 Essential (primary) hypertension; E78.5 Hyperlipidemia, unspecified; I25.10 Atherosclerotic heart disease of native coronary artery without angina pectoris; I25.2 Old myocardial infarction; Z79.82 Long term (current) use of aspirin; Z79.02 Long term (current) use of antithrombotics/antiplatelets; Z87.891 Personal history of nicotine dependence; Z95.1 Presence of aortocoronary bypass graft; Z86.79 Personal history of other diseases of the circulatory system; Z86.73 Personal history of transient ischemic attack (TIA), and cerebral infarction without residual deficits; Z90.49 Acquired absence of other specified parts of digestive tract
CPT/HCPCS: 80048; 82948; 85027; 85610; 85730; 99281; 99284

== ENCOUNTER 2018-03-16 07:04 | Day surgery (SDC) | payer OTHER ==
[~2018-03-16] VITALS: Ht 177.8 cm; Wt 94.3 kg
[~2018-03-16 07:04] MED LIST changes: +COUMADIN1 MG PO; +LASIX40 MG PO; +METOLAZONE5 MG PO; +OMEGA 3 500 SO1 EACH PO; +TRESIBA FL100 UNIT/1 SC; +VICTOZA0.6 MG/0.1 SC; +VITAMIN K100 MCG PO
[2018-03-16 07:57] VITALS: BP 121/68
[2018-03-16 08:03] LABS: PTT 32.3 SEC (25-37)
[2018-03-16 08:04] LABS: INTER. NORMALIZED RATIO 1.5
[2018-03-16 11:15] VITALS: BP 149/72
== END 2018-03-16 11:41 | disposition home or self-care (01) ==
LOC: SDC 07:04
PROVIDERS: Internal Medicine
DX: H43.11 Vitreous hemorrhage, right eye (principal); I12.9 Hypertensive chronic kidney disease with stage 1 through stage 4 chronic kidney disease, or unspecified chronic kidney disease; N18.3 Chronic kidney disease, stage 3 (moderate); I25.10 Atherosclerotic heart disease of native coronary artery without angina pectoris; Z86.73 Personal history of transient ischemic attack (TIA), and cerebral infarction without residual deficits; Z87.891 Personal history of nicotine dependence; Z79.82 Long term (current) use of aspirin; Z79.02 Long term (current) use of antithrombotics/antiplatelets; Z79.01 Long term (current) use of anticoagulants
CPT/HCPCS: 82948; 85610; 85730; J0690; J2405